=== PATIENT | male | born 1950 | race Hispanic/Latino ===

== ENCOUNTER 2018-11-28 23:05 | Emergency (ER) | payer BC, MEDICARE ==
[~2018-11-28] VITALS: Ht 162.6 cm; Wt 85.3 kg
[~2018-11-28 23:05] MED LIST: ASPIR 8181 MG PO; ATENOLOL50 MG PO; CELEXA40 MG PO; DIOVAN160 MG PO; LOVAZA1 GM PO; METFORMIN HCL1000 MG PO; PRAVASTATIN SOD80 MG PO
[2018-11-28] MEDS ORDERED: CLONIDINE HCL 0.2 MG TAB PO ONE (23:30)
[2018-11-29 00:06] LABS: BASOPHILS # (AUTO) 0.1 (0.0-0.1); BASOPHILS % 0.4 % (0.0-1.0); EOSINOPHILS # (AUTO) 0.5 (0.0-0.4); EOSINOPHILS % 3.7 % (0.0-6.0); HEMOGLOBIN 15.4 g/dL (14.0-18.0); LYMPHOCYTES # (AUTO) 3.1 (1.0-3.2); MEAN CORPUSCULAR HEMOGLOBIN 29.5 pg (28-32); MEAN CORPUSCULAR HGB CONC 34.2 g/dL (31-35); MEAN CORPUSCULAR VOLUME 86.2 fL (81-99); MONOCYTES # (AUTO) 0.9 (0.2-0.8); MONOCYTES % 7.2 % (4.4-11.3); NEUTROPHILS # (AUTO) 8.3 (2.1-6.9); NEUTROPHILS % 64.4 % (38.7-80.0); PLATELET COUNT 186 x10e3/uL (140-360); RED BLOOD COUNT 5.22 x10e6/uL (4.3-5.7); RED CELL DISTRIBUTION WIDTH 13.5 % (11.7-14.4)
--- NOTE | 2018-11-29 00:20 | Diagnostic Imaging Report ---
EXAMINATION: Head CT without contrast. HISTORY:Frontal headache. COMPARISON:None. TECHNIQUE: Multidetector axial images were obtained from the foramen magnum to the vertex without contrast. The images were reconstructed using brain and bone algorithms. Thin section brain images were reformatted into coronal and sagittal planes. Dose modulation, iterative reconstruction, and/or weight based adjustment of the mA/kV was utilized to reduce the radiation dose to as low as reasonably achievable. Intravenous contrast: None IMAGE QUALITY: Acceptable. FINDINGS: Skull/scalp: No lytic or blastic. lesions. No surgical changes. Parenchyma: Nonspecific frontoparietal patchy white matter hypodensity are likely related to small vessel ischemic changes. No acute hemorrhage, mass or acute major vascular territorial infarct. Arteries: No density suggestive of thrombosis. Dural sinuses: No abnormal density suggestive of thrombosis. Ventricles: Mild compensated dilatation due to volume loss. No acute hydrocephalus. Extra-axial spaces: No abnormal density. Brain volume: Generalized age-related cerebral volume loss. Craniocervical junction: No mass, Chiari malformation, or basilar invagination. Sella: No mass. Paranasal/mastoid sinuses: Complete opacification of left maxillary sinus. Moderate mucosal thickening in bilateral ethmoid sinuses. IMPRESSION: 1. No acute intracranial abnormality, particularly no acute hemorrhage, mass or acute major vascular territorial infarct. 2. Mild supratentorial white matter microvascular ischemic changes and generalized age-related cerebral volume loss. 3. Moderate to severe mucosal inflammatory changes in bilateral ethmoid and left maxillary sinuses. Signed by: Dr. Kaya Julien M.D. on 11/29/2018 12:17 AM
[2018-11-29 00:21] LABS: ALANINE AMINOTRANSFERASE 14 IU/L (0-55); ALBUMIN 4.1 g/dL (3.5-5.0); ALBUMIN/GLOBULIN RATIO 1.4 (0.8-2.0); ALKALINE PHOSPHATASE 106 IU/L (40-150); ANION GAP 16.1 mmol/L (8-16); BLOOD UREA NITROGEN 15 mg/dL (7-26); BUN/CREATININE RATIO 19 (6-25); CALCIUM 9.8 mg/dL (8.4-10.2); CARBON DIOXIDE 25 mmol/L (22-29); CHLORIDE 104 mmol/L (98-107); CREATINE KINASE 41 IU/L (30-200); CREATININE, SERUM 0.81 mg/dL (0.72-1.25); EST GLOMERULAR FILTRATION RATE > 60 ML/MIN (60-); GLUCOSE 124 mg/dL (74-118); POTASSIUM 4.1 mmol/L (3.5-5.1); SODIUM 141 mmol/L (136-145)
[2018-11-29] MEDS ORDERED: HYDRALAZINE HCL 20 MG/ML VIAL IV STA (01:20)
--- NOTE | 2018-11-29 02:04 | Diagnostic Imaging Report ---
CHEST SINGLE (PORTABLE), 11/28/2018 11:26 PM Technique: CHEST SINGLE (PORTABLE) Comparison: None available. Clinical history: Chest pain Findings: See Impression Impression: 1. Mildly enlarged cardiomediastinal silhouette status post sternotomy, accentuated by portable lordotic technique. 2. No consolidation or edema. No effusion or pneumothorax. 3. Distal right claviculectomy or osteolysis. Signed by: Dr Grace Díaz MD on 11/29/2018 2:01 AM
== END 2018-11-29 02:37 | disposition home or self-care (01) ==
LOC: ER 23:05
DX: R07.89 Other chest pain (principal); R51 Headache; I10 Essential (primary) hypertension; E11.9 Type 2 diabetes mellitus without complications; I25.10 Atherosclerotic heart disease of native coronary artery without angina pectoris; E78.5 Hyperlipidemia, unspecified; Z95.1 Presence of aortocoronary bypass graft
CPT/HCPCS: 36415; 70450; 71045; 80053; 82550; 82553; 84484; 85025; 93005; 99284; J0360

== ENCOUNTER → 2020-08-31 | Outpatient (CLI) | payer MEDICARE ==
[~2020-08-31] MED LIST changes: +AMLODIPINE BESY10 MG PO; +CARVEDILOL12.5 MG PO; +CITALOPRAM HBR20 MG PO; +CLOPIDOGREL75 MG PO; +METFORMIN HCL500 MG PO; +QUETIAPINE FUM100 MG PO; +REGADENOSON 0.4 MG/5 ML SYR IV ONE
== END ==
LOC: NM 09:36
PROVIDERS: ATTEND Internal Medicine
DX: R07.9 Chest pain, unspecified (principal)
CPT/HCPCS: 78452; 93017; A9502; J2785

== ENCOUNTER → 2020-09-12 | Day surgery (SDC) | payer MEDICARE, OTHER ==
[2020-09-07 11:32] LABS: BASOPHILS % 0.5 % (0.0-1.0); EOSINOPHILS # (AUTO) 0.3 (0.0-0.4); EOSINOPHILS % 4.4 % (0.0-6.0); HEMATOCRIT 43.4 % (38.2-49.6); HEMOGLOBIN 14.7 g/dL (14.0-18.0); LYMPHOCYTES # (AUTO) 1.5 (1.0-3.2); LYMPHOCYTES % 19.8 % (18.0-39.1); MEAN CORPUSCULAR HEMOGLOBIN 29.2 pg (28-32); MEAN CORPUSCULAR HGB CONC 33.9 g/dL (31-35); MEAN CORPUSCULAR VOLUME 86.3 fL (81-99); MONOCYTES # (AUTO) 0.4 (0.2-0.8); MONOCYTES % 5.2 % (4.4-11.3); NEUTROPHILS # (AUTO) 5.4 (2.1-6.9); NEUTROPHILS % 69.8 % (38.7-80.0); PLATELET COUNT 191 x10e3/uL (140-360); RED BLOOD COUNT 5.03 x10e6/uL (4.3-5.7); RED CELL DISTRIBUTION WIDTH 13.1 % (11.7-14.4)
[2020-09-07 11:49] LABS: INR 0.96; PROTHROMBIN TIME 13.3 seconds (11.9-14.5)
[2020-09-07 11:56] LABS: ALANINE AMINOTRANSFERASE 13 IU/L (0-55); ALBUMIN 4.1 g/dL (3.5-5.0); ALBUMIN/GLOBULIN RATIO 1.4 (0.8-2.0); ALKALINE PHOSPHATASE 73 IU/L (40-150); ANION GAP 14.1 mmol/L (8-16); BLOOD UREA NITROGEN 12 mg/dL (7-26); BUN/CREATININE RATIO 14 (6-25); CALCIUM 9.1 mg/dL (8.4-10.2); CARBON DIOXIDE 23 mmol/L (22-29); CHLORIDE 105 mmol/L (98-107); CREATININE, SERUM 0.84 mg/dL (0.72-1.25); EST GLOMERULAR FILTRATION RATE > 60 ML/MIN (60-); GLUCOSE 252 mg/dL (74-118); POTASSIUM 4.1 mmol/L (3.5-5.1); SODIUM 138 mmol/L (136-145)
[~2020-09-12] VITALS: Ht 162.6 cm; Wt 81.2 kg
[~2020-09-12] MED LIST changes: +ALPRAZOLAM 0.5 MG TAB ONE; +DIPHENHYDRAMINE HCL 25 MG CAP ONE; +DIPHENHYDRAMINE HCL INJ 50 MG/ML VIAL ONE; +FENTANYL CITRATE/PF 100MCG/2 ML INJ ONE; +HEPARIN SOD (PORCINE) 1000 UNIT/ML 30ML ONE; +HEPARIN SOD/SOD CHLORIDE 2,000 ML ONE; +IOPAMIDOL 370 MG/ML 200 ML INFUS..BTL INJ ONE; +LIDOCAINE HCL 2% LOCAL 20 ML VIAL ONE; +METHYLPREDNISOLONE SOD SUCC 125 MG/2ML VIAL ONE; +MIDAZOLAM HCL 2 MG/2 ML VIAL ONE; +NITROGLYCERIN 0.4 MG SUBL ONE; -REGADENOSON 0.4 MG/5 ML SYR IV ONE; +SODIUM CHLORIDE 0.9% 1000ML 1,000 ML ONE; +VERAPAMIL HCL 2.5 MG/ML 2 ML VIAL ONE
[2020-09-12 12:00] VITALS: BP 156/74
--- NOTE | 2020-09-12 12:00 | NUR ---
1200pt in rm #9 prepped for procedure. Alert oriented and appropriate, PERRLA, respirations even and unlabored to room air. Pulses x4 extremities equal and palpable . Cap fill brisk < 3 sec. skin intact.States nervous with 4/10 pain scale to tightness of chest which has been on going. Skin warm and dry integrity appears intact in general. IV started Lamar Rn #20 left hand and presents healthy w/o s/s of infiltration or complaint. Abdomen soft and supple. pt offered toileting, denies need to urinate or defecate. Personal affects with patient. . Pt verbalizes understanding of POC. Educated student admissions clerk light use. bed low and locked, side rails up x2 and call light at side. Awaiting for physician arrival/procedure time. pt using personal mask for COVID-19 mitigation. at bedside. marlyn/jalyn Addendum: 09/12/20 at 1851 by Maria Elena Garber RN 12n iv g #22 started in left hand
--- NOTE | 2020-09-12 13:30 | NUR ---
1330 pre meds given Xanax 0.5 Benadryl 50 ivp and Solumedrol 125 ivp. for Iodine allergy.By Lorrie TELLES. Side rails up,call light at bedside and bed in low position. ds/rn
--- NOTE | 2020-09-12 18:15 | NUR ---
1815p reported to Md pt with c/o extreme hunger and anxiety regarding procedure. Ok to give 1/2 sandwich and pudding with sip h20 and Xanax 0.5mg pox1, Comfort measures given to both patient and with adequate results. Pt states understands delay of proceduraal table time availability .No other gross issues with pain,pallor,pressure or dysrhythmia.marlyn/rn
--- NOTE | 2020-09-12 19:45 | NUR ---
1944 Pt has 6/10 pain to left chest bp checked 188/88 Pr 88 and Resp 21 on RA 99% sat call NTG 0.4 sl given x1 ds/rn
--- NOTE | 2020-09-12 19:53 | NUR ---
1952 bp 171/78 Pr 98 Resp 14 RA 99%.Dr Solitario to do case per Dr Redd . Did update Dr Solitario of pt condition. Family remains at bedside. marlyn/jalyn
--- NOTE | 2020-09-12 20:18 | NUR ---
2018 pt states CP resolved bp 165/78 pt calm aware next to have procedure done.Dr Solitario in lab for this procedure Room being prepped ds/rn
--- NOTE | 2020-09-12 20:23 | NUR ---
hand off completed with Jason Solitario here to perform c states not necessary to re medicate for iodine allergy. marlyn/rn
[2020-09-12 21:27] VITALS: BP 156/79
--- NOTE | 2020-09-12 21:27 | NUR ---
2127p Recovery phase initiated bedside report received from Jason Cohen RN. Identiferx2.Alert oriented and appropriate, PERRLA, respirations even and unlabored to room air. Pulses x4 extremities equal and strong. Right Perclose to rt groin. No s/s of hematoma or gross abnormality Skin warm and dry integrity appears intact. IV 0.9Ns to left hand at 100cchr, presents healthy w/o s/s of infiltration or complaint. Abdomen soft and supple. pt offered toileting, denies need to urinate or defecate. Family at bedside. Pt understanding of POC. Bedside telemetry/monitoring initiated. Currently w/o complaint of pain or need. Call light within reach, bed low and locked, side rails up x2. pt using personal mask for COVID-19 mitigation. -Dr Solitario spoke with given results. ok to dc home in one hour.DC planning discussed aware to f/o Dr Macdonald for medication evaluation.ds/jalyn
[2020-09-12 21:45] VITALS: BP 141/77
[2020-09-12 22:00] VITALS: BP 147/83
[2020-09-12 22:15] VITALS: BP 147/99
--- NOTE | 2020-09-12 22:16 | NUR ---
2216pm sitting up in bed 30 degree. NO gross issues pain,pallor pressure or dysrhythmia. understands plan of care. d/rn
[2020-09-12 22:30] VITALS: BP 150/86
--- NOTE | 2020-09-12 22:30 | NUR ---
2230p meets discharge criteria. VS wnl, alert and oriented. Pt and Family Understands discharge instruction. Overall general assess w/o gross outliers. Skin warm, dry, and intact. Right groin dressing soft w/o s/s of hematoma. Pedal pulses unchanged. IV removed and appears distal tip is intact. Pt maintains mask on for COVID 19 precautions being taken by wheel chair to awaiting car. Transfers w/o gross distress with discharge paperwork in hand.ds/rn
--- NOTE | 2020-10-02 11:38 | Operative Report ---
DATE OF PROCEDURE: 09/12/2020 SURGEON: Javi Solitario MD INDICATIONS: Coronary artery disease, angina, abnormal stress test. PROCEDURES PERFORMED: 1. Left heart catheterization, selective coronary angiography. 2. Deployment of right groin Perclose closure device. COMPLICATIONS: None. RECOMMENDATION: Medical therapy. DESCRIPTION OF PROCEDURE: Access was obtained in the right femoral artery. A 6-Divehi sheath was placed. Coronary angiography demonstrated patent left main. Left anterior descending artery was occluded in its proximal portion. Circumflex, 50% to 70% stenosis. Right coronary artery was occluded. Left internal mammary artery bypass to left anterior descending artery was widely patent. No saphenous vein bypasses were noted. No intervention deemed necessary. Right groin repaired using Perclose closure device. The patient discharged home the same day. Javi Solitario MD KSB/MODL /[id number]
== END | disposition home or self-care (01) ==
LOC: CATH LAB 11:14
PROVIDERS: ATTEND Internal Medicine
DX: I25.810 Atherosclerosis of coronary artery bypass graft(s) without angina pectoris (principal); R94.39 Abnormal result of other cardiovascular function study; I10 Essential (primary) hypertension; E78.5 Hyperlipidemia, unspecified; E13.69 Other specified diabetes mellitus with other specified complication; Z01.812 Encounter for preprocedural laboratory examination; Z20.828 Contact with and (suspected) exposure to other viral communicable diseases; Z79.84 Long term (current) use of oral hypoglycemic drugs; Z79.02 Long term (current) use of antithrombotics/antiplatelets; Z79.82 Long term (current) use of aspirin; Z95.1 Presence of aortocoronary bypass graft; Z82.49 Family history of ischemic heart disease and other diseases of the circulatory system
CPT/HCPCS: 36415 ×2; 80053; 82948; 85025; 85610; 93455; C1760; J1200; J1644; J2001; J2250; J2930; J3010; J7030; Q9967; U0002; 99152

== ENCOUNTER → 2021-01-11 | Outpatient (CLI) | payer MEDICARE ==
[~2021-01-11] MED LIST changes: -ALPRAZOLAM 0.5 MG TAB ONE; -DIPHENHYDRAMINE HCL 25 MG CAP ONE; -DIPHENHYDRAMINE HCL INJ 50 MG/ML VIAL ONE; -FENTANYL CITRATE/PF 100MCG/2 ML INJ ONE; -HEPARIN SOD (PORCINE) 1000 UNIT/ML 30ML ONE; -HEPARIN SOD/SOD CHLORIDE 2,000 ML ONE; -IOPAMIDOL 370 MG/ML 200 ML INFUS..BTL INJ ONE; -LIDOCAINE HCL 2% LOCAL 20 ML VIAL ONE; -METHYLPREDNISOLONE SOD SUCC 125 MG/2ML VIAL ONE; -MIDAZOLAM HCL 2 MG/2 ML VIAL ONE; -NITROGLYCERIN 0.4 MG SUBL ONE; -SODIUM CHLORIDE 0.9% 1000ML 1,000 ML ONE; -VERAPAMIL HCL 2.5 MG/ML 2 ML VIAL ONE
== END ==
LOC: CARD 12:41
PROVIDERS: ATTEND Internal Medicine
DX: I73.9 Peripheral vascular disease, unspecified (principal); R06.00 Dyspnea, unspecified
CPT/HCPCS: 93306; 93925